=== PATIENT | female | born 1985 | race Caucasian/White ===

== ENCOUNTER 2018-08-26 06:30 | Emergency (ER) | payer OTHER ==
[2018-08-26 06:34] VITALS: BP 139/106
[2018-08-26] MEDS ORDERED: IBUPROFEN 600 MG TAB PO ONE (06:41)
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
== END 2018-08-26 07:37 | disposition home or self-care (01) ==
DX: S63.502A Unspecified sprain of left wrist, initial encounter (principal); V47.5XXA Car driver injured in collision with fixed or stationary object in traffic accident, initial encounter; Y92.410 Unspecified street and highway as the place of occurrence of the external cause; Y93.9 Activity, unspecified; Y99.9 Unspecified external cause status
CPT/HCPCS: L3984